=== PATIENT | male | born 1990 | race Two or more races ===

== ENCOUNTER 2017-04-21 08:33 | Day surgery (SDC) | payer BC ==
[~2017-04-21 08:33] MED LIST: DIPHENHYDRAMINE HCL 50 MG/ML VIAL ONE; EPINEPHRINE INJ 1 MG/10 ML DISP.SYRIN ONE; FENTANYL CITRATE INJ/PF 100 MCG/2 ML AMPUL ONE; FLUMAZENIL INJ 0.5 MG/5 ML VIAL IV ONE; GLUCAGON,HUMAN RECOMB 1 MG INJ ONE; MIDAZOLAM 2 MG/2 ML INJ ONE; NALOXONE HCL INJ/PF 0.4 MG/1 ML SDV ONE; ONDANSETRON HCL INJ/PF 4 MG/2 ML SDV ONE
[2017-04-21] MEDS: MIDAZOLAM 2 MG/2 ML INJ ONE ×3 (09:24→09:30)
--- NOTE | 2017-04-21 09:45 | Operative Report ---
Operative Report DATE OF SURGERY: 04/21/17 Operative Report: The risks benefits and alternatives of the procedure explained to the patient in detail and informed consent is obtained.A GIF Olympus video scope was inserted into the patient's mouth and hypopharynx, the esophagus is identified intubated and insufflated, the scope was then advanced through the esophagus stomach and duodenum, retroflexion maneuver is done, the esophagus stomach and first and second portions of the duodenum examined PREOPERATIVE DIAGNOSIS: Epigastric pain POSTOPERATIVE DIAGNOSIS: Gastritis, duodenitis biopsies obtained to rule out Helicobacter pylori OPERATION: EGD with biopsy SURGEON: AVRIL PRESLEY ANESTHESIA: Moderate Sedation - 6 mg percent, 100 mcg fentanyl. Conscious sedation monitoring time 30 minutes. TISSUE REMOVED OR ALTERED: Gastric specimen obtained to rule out Helicobacter pylori COMPLICATIONS: None. ESTIMATED BLOOD LOSS: None. INTRAOPERATIVE FINDINGS: No ulcer disease noted. Normal esophagus PROCEDURE: Patient tolerated procedure well. No immediate postprocedure complications are noted. Patient discharged in good condition. Discharge date 04/21/2017 Discharge diet: Regular. Discharge activity: Regular. 2-3 week follow-up to discuss findings. We will wait on biopsies. Patient is instructed to call the office or proceed to the emergency room should there be any further problems or questions
[2017-04-21] MEDS ORDERED: FENTANYL CITRATE INJ/PF 100 MCG/2 ML AMPUL ONE (10:48)
[2017-04-21 11:09] VITALS: BP 117/76
== END 2017-04-21 10:55 | disposition home or self-care (01) ==
LOC: END 08:33
PROVIDERS: ATTEND Internal Medicine Gastroenterology
PROC: 0DB68ZX Excision of Stomach, Via Natural or Artificial Opening Endoscopic, Diagnostic (ICD-10-PCS; principal; 2017-04-21 09:30)
DX: R10.13 Epigastric pain (principal); F17.210 Nicotine dependence, cigarettes, uncomplicated; K29.50 Unspecified chronic gastritis without bleeding; K29.80 Duodenitis without bleeding
CPT/HCPCS: 43239; 88342 ×2; 88307 ×2; J2250; J3010; J1610; J0171; J1200; J2310; J2405; J3490

== ENCOUNTER → 2017-05-09 | Outpatient (CLI) | payer BC ==
--- NOTE | 2017-05-09 09:02 | RADIOLOGY REPORT (SQ) ---
EXAM DESCRIPTION: CT ABD/PELVIS WITH IV ORAL COMPLETED DATE/TIME: 05/09/2017 8:35 am REASON FOR STUDY: GENERALIZED ABD PAIN (R10.84) R10.84 GENERALIZED ABDOMINAL PAIN COMPARISON: None. TECHNIQUE: CT scan of the abdomen and pelvis performed with intravenous and oral contrast using brian ralph scanning technique with dynamic intravenous contrast injection. Images reviewed with lung, soft t issue, and bone windows. Reconstructed coronal and sagittal MPR images reviewed. Delayed images for e valuation of the urinary system also acquired. All images stored on PACS. All CT scanners at this facility use dose modulation, iterative reconstruction, and/or weight based d osing when appropriate to reduce radiation dose to as low as reasonably achievable (ALARA). [facility]: Dose Right [facility]: CareDose [facility]: Dose Right [facility]: Teradose 4D [facility]: flaveit CONTRAST TYPE AND DOSE: contrast/concentration: Isovue 370.00 mg/ml; Total Contrast Delivered: 83.0 ml; Total Saline Delivered: 68.0 ml RENAL FUNCTION: None required. The patient is less than 50 years old. RADIATION DOSE: Up-to-date CT equipment and radiation dose reduction techniques were employed. CTDIv ol: 5.0 - 5.7 mGy. DLP: 562 mGy-cm.. LIMITATIONS: None. FINDINGS: LOWER CHEST: No significant findings. No nodules or infiltrates. LIVER: Normal size. No masses. No dilated ducts. SPLEEN: Normal size. No focal lesions. PANCREAS: No masses. No significant calcifications. No adjacent inflammation or peripancreatic fluid collections. Pancreatic duct not dilated. GALLBLADDER: No identified stones by CT criteria. No inflammatory changes to suggest cholecystitis. ADRENAL GLANDS: No significant masses or asymmetry. RIGHT KIDNEY AND URETER: No solid masses. No significant calcification. No hydronephrosis or hydroure ter. LEFT KIDNEY AND URETER: No solid masses. No significant calcification. No hydronephrosis or hydrouret er. AORTA AND VESSELS: No aneurysm. No dissection. Renal arteries, SMA, celiac without stenosis. RETROPERITONEUM: No retroperitoneal adenopathy, hemorrhage or masses. BOWEL AND PERITONEAL CAVITY: No obstruction. No visualized masses. No free fluid. No inflammatory ch anges or thickening of bowel wall. APPENDIX: Not visualized. PELVIS: No significant masses. Normal bladder. No free fluid. ABDOMINAL WALL: No masses. No hernias. BONES: No significant or acute findings. OTHER: No other significant finding. IMPRESSION: NO SIGNIFICANT OR ACUTE FINDINGS IN THE ABDOMEN OR PELVIS. TECHNICAL DOCUMENTATION: JOB ID: [id number] Quality ID # [id number]: Final reports with documentation of one or more dose reduction techniques (e.g., Au tomated exposure control, adjustment of the mA and/or kV according to patient size, use of iterative reconstruction technique) 2010 [employer]- All Rights Reserved
== END ==
LOC: RAD 08:02
PROVIDERS: ATTEND Internal Medicine Gastroenterology
DX: R10.84 Generalized abdominal pain (principal)
CPT/HCPCS: 74160; 74177

== ENCOUNTER 2019-12-12 22:04 | Emergency (ER) | payer OTHER ==
--- NOTE | 2019-12-12 23:21 | ER Document Report ---
ED Medical Screen (RME) - General Chief Complaint: Nose Bleed Stated Complaint: NOSE BLEED Primary Care Provider: AVRIL PRESLEY MD [Primary Care Provider] - Follow up as needed Notes: Patient is a 29-year-old male with no significant past medical history who presents to the emergency department with a chief complaint of cough and flulike symptoms that began 4 days ago. He states his significant other was recently sick with influenza. He reports over the past couple days he has had some increased nosebleeds from the bilateral nares associated with clots and drainage down the back of the throat. He states he thought this was unusual so came for evaluation. He also admits to some discomfort in the left lower anterior chest wall specifically with coughing. He denies any productivity to the cough. Denies any known fever, nausea vomiting, diarrhea, chills or night sweats. I have treated and performed a rapid initial assessment of this patient. A comprehensive ED assessment and evaluation of the patient, analysis of test results and completion of medical decision making process will be conducted by additional ED providers. PHYSICAL EXAMINATION: GENERAL: Well-appearing, well-nourished and in no acute distress. A&Ox4. Answers questions appropriately. TRAVEL OUTSIDE OF THE [place] IN LAST 30 DAYS: No - Related Data Allergies/Adverse Reactions: No Known Allergies Allergy (Verified 12/12/19 23:09) Past Medical History - Social History Frequency of alcohol use: Occasional - Past Medical History Cardiac Medical History: Denies: Hx Coronary Artery Disease, Hx Heart Attack, Hx Hypertension Pulmonary Medical History: Reports: Hx Asthma - as child Denies: Hx Bronchitis - acute bronchitis x1, Hx COPD, Hx Pneumonia Neurological Medical History: Denies: Hx Cerebrovascular Accident, Hx Seizures Musculoskeltal Medical History: Denies Hx Arthritis - Immunizations Hx Diphtheria, Pertussis, Tetanus Vaccination: Yes Physical Exam - Vital signs Vitals: Temp Pulse Resp BP Pulse Ox 98.4 F 71 20 144/82 H 97 12/12/19 22:39 12/12/19 22:39 12/12/19 22:39 12/12/19 22:39 12/12/19 22:39 Course - Vital Signs Vital signs: Temp Pulse Resp BP Pulse Ox 98.4 F 71 20 144/82 H 97 12/12/19 22:39 12/12/19 22:39 12/12/19 22:39 12/12/19 22:39 12/12/19 22:39 Doctor's Discharge - Discharge Referrals: AVRIL PRESLEY MD [Primary Care Provider] - Follow up as needed
--- NOTE | 2019-12-13 01:11 | ER Document Report ---
ED General - General Chief Complaint: Nose Bleed Stated Complaint: NOSE BLEED Time Seen by Provider: 12/13/19 01:11 Primary Care Provider: AVRIL PRESLEY MD [Primary Care Provider] - Follow up as needed Notes: CHIEF COMPLAINT: Nosebleed HPI: 29-year-old male presenting for evaluation of nosebleeds today. Patient states 4 days ago he was diagnosed with influenza, states coughing and congestion are much improved, no fevers. Patient states that with some of the coughing episodes today his nose will start to bleed more out of the right side than the left. After he pinches the nose for period of time the bleeding to stop. States he is not actively bleeding at this time. Denies any chest pain, pleuritic pain or shortness of breath at this time ROS: See HPI - all other systems were reviewed and are otherwise negative Constitutional: no fever Eyes: no drainage, no blurred vision ENT: Positive runny nose, no sore throat, positive nosebleed resolved Cardiovascular: no chest pain Resp: no SOB, positive cough GI: no vomiting, no diarrhea, no abdominal pain : no dysuria Integumentary: no rash Allergy: no hives Musculoskeletal: no extremity pain or swelling Neurological: no numbness/tingling, no weakness MEDICATIONS: I agree with the patient medications as charted by the RN. ALLERGIES: I agree with the allergies as charted by the RN. PAST MEDICAL HISTORY/PAST SURGICAL HISTORY: Reviewed and agree as charted by RN. SOCIAL HISTORY: Reviewed and agree as charted by RN. FAMILY HISTORY: No significant familial comorbid conditions directly related to patient complaint EXAM: Reviewed vital signs as charted by RN. CONSTITUTIONAL: Alert and oriented and responds appropriately to questions. Well-appearing; well-nourished, no acute distress HEAD: Normocephalic; atraumatic EYES: PERRL; Conjunctivae clear, sclerae non-icteric ENT: normal nose; no rhinorrhea; there is some friability of the nasal septum bilaterally, no active bleeding at this time, moist mucous membranes; pharynx without lesions noted, no uvula edema or deviation, no tonsillar hypertrophy, phonation normal NECK: Supple without meningismus; non-tender; no cervical lymphadenopathy, no masses CARD: RRR; no murmurs, no clicks, no rubs, no gallops; symmetric distal pulses RESP: Normal chest excursion without splinting or tachypnea; breath sounds clear and equal bilaterally; no wheezes, no rhonchi, no rales, pulse oximetry 96% on room air not hypoxic ABD/GI: Normal bowel sounds; non-distended; soft, non-tender BACK: The back appears normal and is non-tender to palpation EXT: Normal ROM in all joints; no cyanosis, no effusions, no edema SKIN: Normal color for age and race; warm; dry; good turgor; no acute lesions noted NEURO: Moves all extremities equally; Motor and sensory function intact PSYCH: The patient's mood and manner are appropriate. Grooming and personal hygiene are appropriate. MDM: 29-year-old male presenting for nosebleeds today. No active bleeding at this time. Will have nursing place Afrin in the nose here in the emergency department. Will have patient place a small amount of antibiotic ointment in the nares bilaterally to help with healing of the friable septal tissue. Follow-up PCP TRAVEL OUTSIDE OF THE [place] IN LAST 30 DAYS: No - Related Data Allergies/Adverse Reactions: No Known Allergies Allergy (Verified 12/12/19 23:09) Past Medical History - Social History Smoking Status: Former Smoker Frequency of alcohol use: Occasional Family History: Reviewed & Not Pertinent Patient has suicidal ideation: No Patient has homicidal ideation: No - Past Medical History Cardiac Medical History: Denies: Hx Coronary Artery Disease, Hx Heart Attack, Hx Hypertension Pulmonary Medical History: Reports: Hx Asthma - as child Denies: Hx Bronchitis - acute bronchitis x1, Hx COPD, Hx Pneumonia Neurological Medical History: Denies: Hx Cerebrovascular Accident, Hx Seizures Musculoskeletal Medical History: Denies Hx Arthritis - Immunizations Hx Diphtheria, Pertussis, Tetanus Vaccination: Yes Physical Exam - Vital signs Vitals: Temp Pulse Resp BP Pulse Ox 98.4 F 71 20 144/82 H 97 12/12/19 22:39 12/12/19 22:39 12/12/19 22:39 12/12/19 22:39 12/12/19 22:39 Course - Vital Signs Vital signs: Temp Pulse Resp BP Pulse Ox 98.4 F 68 16 107/80 96 12/13/19 01:17 12/13/19 01:17 12/13/19 01:17 12/13/19 01:17 12/13/19 01:17 Discharge - Discharge Clinical Impression: Nosebleed Condition: Stable Disposition: HOME, SELF-CARE Instructions: Nosebleed Instructions ([facility]) Additional Instructions: If your nose rebleeds pinch it and tilt the head forward so you do not choke on blood. Use a small amount of antibiotic ointment on a Q-tip and placed this inside the anterior portion of the nose on each side to help with healing of the tissue. Follow-up with primary care provider for reevaluation of symptoms call for appointment Referrals: AVRIL PRESLEY MD [Primary Care Provider] - Follow up as needed
[2019-12-13 01:19] VITALS: BP 107/80
[2019-12-13] MEDS ORDERED: OXYMETAZOLINE HCL 0.05% NASAL SPRAY 15 ML BOTTLE NASL ONE (01:29)
== END 2019-12-13 02:25 | disposition home or self-care (01) ==
LOC: ER 22:04
DX: R04.0 Epistaxis (principal); R05 Cough; R09.89 Other specified symptoms and signs involving the circulatory and respiratory systems; Z87.891 Personal history of nicotine dependence
CPT/HCPCS: 99283; J3490